=== PATIENT | female | born 1945 | race Caucasian/White ===

== ENCOUNTER 2017-02-08 11:25 | Day surgery (SDC) | payer MEDICARE, BC ==
[~2017-02-08] VITALS: Ht 167.6 cm; Wt 101.2 kg
[~2017-02-08 11:25] MED LIST: ACET-2723 PO; CYCL-375 PO; HYDR-4246 PO; LIDOCAINE 1% (10mg/ml) 2ml SDV INJ ONE; LISI1TAB11 PO; LR 1,000 ML IV SCH; OMEP20CA10 PO
[2017-02-08 11:59] VITALS: Ht 167.6 cm; Wt 101.2 kg
[2017-02-08 12:17] LABS: ANION GAP 9 MEQ/L (5-15); BUN/CREATININE RATIO 16 RATIO (6-26); CALCIUM 10.1 MG/DL (8.4-10.2); CHLORIDE 103 MEQ/L (98-107); CO2 - CARBON DIOXIDE 32 MEQ/L (22-30); CREATININE 1.1 MG/DL (0.7-1.2); GLOMERULAR FILTRATION RATE 49; GLUCOSE 104 MG/DL (65-110); POTASSIUM 4.5 MEQ/L (3.6-5); SODIUM 144 MEQ/L (134-144)
[2017-02-08 12:35] VITALS: BP 190/81; PULSE 91; RESP 14; TEMP 98; O2SAT 94
[2017-02-08] MEDS ORDERED: BUPIVACAINE 0.25% (2.5mg/ml) INJ 30ml SDV ONE (14:16)
--- NOTE | 2017-02-08 14:26 | ANESPREOP ---
Anesthesia Record Date and Time DATE: 02/08/17 TIME: 14:24 Proposed Surgical Procedure EXCISION OF SUSPICIOUSSKIN LESION, l-UPPER ARM, r-FOREARM Allergies: Coded Allergies: No Known Allergies (Unverified , 02/07/17) Ht/Wt/BMI Height: 5 ' 6.00 " Weight: 101.200 kg BMI: 36.0 kg/m2 Vital Signs Date Time Temp Pulse Resp B/P Pulse Ox O2 Delivery O2 Flow Rate FiO2 02/08/17 12:35 98.0 91 14 190/81 94 Room Air Medications Inpatient Medications Current Medications Medications (Trade) Dose Ordered Sig/Ele Start Time Stop Time Status Last Admin Dose Admin Lactated Ringer's (Lactated Ringers) 1,000 ml @ 50 mls/hr Q20H 02/08/17 07:00 02/08/17 12:54 50 MLS/HR Acetaminophen (Tylenol Extra Strength) 500 Mg Tablet, 1-2 TAB PO Q6H PRN for PAIN/FEVER, (Reported) Last Taken: on Unknown Date & Time Cyclobenzaprine HCl (Cyclobenzaprine HCl ) 10 Mg Tablet, 1 TAB PO 3XDPRN, (Reported) Last Taken: on Unknown Date & Time Hydrocodone/Acetaminophen ([place] 5-325 Tablet) 5-325 Tablet, 1 TAB PO Q6HPRN, (Reported) Last Taken: on 02/07/17 2000 Lisinopril/Hydrochlorothiazide (Lisinopril- Hctz 20-12.5 mg Tab) 1 Each Tablet, 1 TAB PO HS, (Reported) Last Taken: on 02/07/17 0600 Omeprazole (Omeprazole) 20 Mg Capsule.dr, 20 MG PO ACB, (Reported) Take 1 capsule, by mouth, one time a day (before breakfast). Last Taken: on 02/07/17 0600 Currently on Beta Blane: No Medical/Surgical History Anesthesia PMH: Reports: *Hypertension, Arthritis (OA AT HIPS), Reflux (well controlled), Denies: *Angina, *Diabetes, *Dyspnea, *NC, Anesthesia Reactions, Asthma, CHF, COPD, CVA/Stroke/TIA, Cancer, Clotting Problems, Deep Vein Thrombosis, Glaucoma, Hepatitis, Hiatal Hernia, Malignant Hyperthermia, Pneumonia, Renal Disease, Seizures, Sleep Apnea, Thyroid Disease, Tuberculosis Smoking Status: Former smoker (quit 20 yrs ago) Use Chewing Tobacco?: No Second Hand Exposure: No Substance Use Type: does not use Substance last used: prior to arrival Alcohol Intake: none Past Surgical History Orthopedic Surgeries: Yes - R TKA Abdominal Surgeries: Genitourinary Surgeries: Cardiac Surgeries: Endocrine Surgeries: Reproductive Surgeries: Yes - LAP. HYST. Neurological Surgeries: Ear Surgeries: Nose Surgeries: Throat Surgeries: Other Surgeries: Yes - COLONOSCOPY, CAT BILAT Anesthesia Adverse Reactions: FOUND none Family Hx of Anesthesia Advers: none Hx of Motion Sickness: No Pertinent Findings Laboratory Tests 02/08/17 11:59 Physical Exam Respiratory: Lungs clear Cardiovascular: FOUND Regular rate, rhythm Airway Assessment Mallampati Score: II TMD: 3 Fingerbreadths Neck Extension: Fair Teeth: Upper Dentures, Lower Dentures (dentures out preop) Overall Assessment: May Be Diff Mask Vent. ASA: 2 Plan Anesthesia Plan: TIVA Discussion Discussed risks/options/alternatives of anesthesia and questions answered. Patient consents. Nursing pain assessment noted. Attestation Statement Prior to the delivery of any anesthetic medication, I examined the patient, developed the plan, obtained the patient's consent and discussed the risk and benefits of the procedure with the patient/guardian. MARISABEL POWER CRNA Feb 08, 2017 14:26
[2017-02-08] MEDS ORDERED: KETAMINE 500mg/10ml INJECTION ONE (14:57)
[2017-02-08] MEDS ORDERED: MIDAZOLAM 2mg/2ml INJECTION ONE ×2 (14:57→15:27)
[2017-02-08] MEDS ORDERED: FENTANYL 100mcg/2ml INJECTION ONE ×5 (14:57→16:39)
[2017-02-08] MEDS ORDERED: LABETALOL 20mg/4ml INJECTION IV ONE (15:40)
[2017-02-08] MEDS ORDERED: PROPOFOL 200mg 20 ML IV ONE (16:19)
--- NOTE | 2017-02-08 16:52 | GSPOSTPROC ---
Immediate Operative Note DATE: 02/08/17 TIME: 16:49 Postop Diagnosis: Basal cell skin carcinoma of right arm and left arm. Surgical Procedure: Other (Excision of basal cell carcinoma of right arm and left arm.) Surgeon: Lucita ASA: 2 DENAE AGGARWAL MD Feb 08, 2017 16:52
[2017-02-08 16:56] VITALS: BP 143/61; PULSE 93; RESP 18; TEMP 97; O2SAT 94
[2017-02-08] MEDS ORDERED: IBUPROFEN 200 MG TABLET PO PRN (17:00)
[2017-02-08] MEDS ORDERED: OXYCODONE I.R. 5 MG TABLET PO PRN (17:00)
[2017-02-08] MEDS ORDERED: ONDANSETRON 4mg/2ml INJECTION IV PRN (17:00)
[2017-02-08] MEDS ORDERED: ACETAMINOPHEN 500 MG TABLET PO PRN (17:00)
[2017-02-08] MEDS ORDERED: PROMETHAZINE 25 MG INJECTION IV PRN (17:00)
[2017-02-08 17:11] VITALS: BP 133/58; PULSE 85; RESP 16; O2SAT 90
--- NOTE | 2017-02-08 17:15 | ANESPO ---
Post-Op Note Date 02/08/17 Time: 17:15 Status Pt Participated in Evaluation: Pt participated in person Vital Signs Date Time Temp Pulse Resp B/P Pulse Ox O2 Delivery O2 Flow Rate FiO2 02/08/17 16:56 97.0 93 18 143/61 94 Room Air Respiratory Function: Airway patent, Regular respirations Cardiovascular Function: Regular pulse Mental Status: Alert/oriented Pain Level Intensity: 0 Hydration: Taking po fluids Complications during Recovery None apparent Follow-Up Instructions Instructions Per Surgeon KERI GALINDO CRNA Feb 08, 2017 17:15
[2017-02-08 17:26] VITALS: BP 135/61; PULSE 74; RESP 16; O2SAT 90
[2017-02-08 17:41] VITALS: BP 133/60; PULSE 74; RESP 16; O2SAT 90
--- NOTE | 2017-02-09 12:18 | OPNOTEF ---
DATE OF OPERATION 02/08/2017 PREOPERATIVE DIAGNOSES 1. Suspicious skin lesion at left upper arm. 2. Suspicious skin lesion at right proximal forearm. POSTOPERATIVE DIAGNOSES 1. Basal cell skin carcinoma at left upper arm. 2. Basal cell skin carcinoma at right proximal forearm. OPERATION Excision of basal cell skin carcinoma at right proximal forearm and excision of basal cell skin carcinoma at left upper arm. SURGEON Dr. Lucita [facility] ASA Class 2 FINDINGS This patient did have a nodular, elevated 2 cm x 1.5 cm suspicious skin lesion at the left upper arm just above the level of the elbow. This was on the lateral side of the left upper arm just above the elbow. A piece of skin and subcutaneous tissue containing this skin lesion from the left upper arm was excised and submitted for frozen section examination by the pathologist. The pathologist did return a verbal frozen section examination report indicating that all resection margins on the specimen were free of tumor involvement and that this was a basal cell skin carcinoma. The patient did have a 1.4 cm x 1.1 cm ulcerated skin lesion at the ulnar side of the proximal right forearm. This was at the proximal forearm at the level of the elbow on the ulnar side of the arm. An ellipse of skin and subcutaneous tissue containing the skin lesion at the right forearm was excised and submitted as a specimen for study by the pathologist. The pathologist did return a verbal frozen section examination report on the initial specimen excised indicating that the tumor did extend close to the medial margin of the specimen. A wider margin of skin was then excised from along the medial margin of the original excision site and submitted for frozen section examination by the pathologist. The pathologist did then return a verbal frozen section examination report on this specimen indicating that all final resection margins were now free of tumor involvement. DESCRIPTION OF OPERATION The patient was placed in supine position on the operating table. The patient was premedicated with intravenous sedation medication administered by the nurse full roll inspector. The patient continued to receive intravenous sedation medication administered by the nurse full roll inspector throughout the remainder of the operation. The skin lesion site at the proximal right forearm was prepped and draped in routine sterile fashion. Bupivacaine 0.25% without epinephrine was used to infiltrate skin and subcutaneous tissue all around this skin lesion at the proximal right forearm. A longitudinally oriented elliptical incision was made around this ulcerated skin lesion at the proximal right forearm to excise the skin lesion along with a 2-mm margin of normal-appearing skin on medial and lateral sides of the suspicious-appearing skin lesion. The lateral margin of this specimen was tagged with a suture. The specimen was then submitted for frozen section examination by the pathologist. Skin margins were undermined at each side of the elliptical wound at the right forearm. Hemostasis was achieved at the wound by coagulating bleeding points with the monopolar electrosurgery device. Satisfactory hemostasis was achieved. The skin margins of the elliptical wound were able to be approximated to one another from lateral and medial sides of the wound without tension at this time. The skin margins were approximated to one another from lateral and medial sides of the wound with a series of interrupted subcuticular stitches using 3-0 Vicryl suture. The pathology report on the frozen section examination of the specimen was being awaited at this time. Attention was directed to the left arm. The left arm was prepped and draped in routine sterile fashion. The patient continued to receive intravenous sedation medication administered by the nurse full roll inspector. Skin and subcutaneous tissue at the skin lesion at the left upper arm were infiltrated with bupivacaine 0.25% without epinephrine. A longitudinally oriented elliptical incision was made around this suspicious skin lesion at the left upper arm to excise the suspicious skin lesion along with a 2-mm margin of normal-appearing skin on medial and lateral sides of the skin lesion. The ellipse of skin and subcutaneous tissue was removed. The lateral margin of the specimen was tagged with a 3-0 Vicryl suture. This specimen of skin and subcutaneous tissue excised from the left upper arm was then submitted for frozen section examination by the pathologist. Skin and subcutaneous tissue margins at lateral and medial sides of the wound were undermined. Skin margins were now able to be approximated together from medial and lateral sides of the wound without tension. A verbal frozen section examination report was returned on the ellipse of skin and subcutaneous tissue excised from the proximal right forearm. The verbal frozen section examination report indicated that there was tumor extending close to the medial margin of the ellipse of skin and subcutaneous tissue excised from the right proximal forearm. Attention was directed back to the wound at the proximal right forearm. The 3- 0 Vicryl subcuticular stitches which had been placed were divided. Skin and subcutaneous tissue margins were . Additional bupivacaine was infiltrated along the medial margin of the wound. An additional 3-mm margin of skin and subcutaneous tissue was excised from along the medial margin of the wound. This piece of skin was pinned to a cloth drape with some needles and superior, inferior, medial and lateral margins were marked on the cloth drape around the specimen to orient the specimen for the pathologist. This specimen of additional skin and subcutaneous tissue excised from the medial margin of the original excision site at the proximal right forearm was then submitted for frozen section examination by the pathologist. The medial margin of the wound at the proximal right forearm was then approximated to the lateral margin of the elliptical wound at the proximal right forearm with a series of interrupted subcuticular stitches using 3-0 Vicryl suture. Attention was directed back to the wound at the left upper arm. The medial margin of the wound was approximated to the lateral margin of the wound at the left upper arm with a series of interrupted subcuticular stitches using 3-0 Vicryl suture. A verbal frozen section examination report was returned at this time indicating that resection margins on the specimen of skin and subcutaneous tissue excised from the left upper arm were all free of tumor involvement. The verbal frozen section examination report indicated that the skin lesion at the proximal right forearm and the skin lesion at the left upper arm were both basal cell skin carcinomas. There was also a verbal frozen section examination report at this time that the final resection margins for the skin lesion at the proximal right forearm were now free of tumor involvement. Skin margins at the wound at the left upper arm were now more closely approximated to one another with a series of skin titus. Attention was directed back to the wound at the proximal right forearm. Skin margins at the wound at the proximal right forearm were now more closely approximated to one another with a series of skin titus. Sterile dressings were applied to the wound at the proximal right forearm and the wound at the left upper arm. Additional bupivacaine was infiltrated into tissue throughout the operation as needed to maintain patient comfort. The patient did continue to receive intravenous sedation medication administered by the nurse full roll inspector as necessary to maintain patient comfort. The patient did appear to tolerate the operation well. The patient was transferred from the operating room to the short-stay surgery unit in satisfactory condition. MAGALI
== END 2017-02-08 17:50 ==
LOC: SCU 11:25
PROVIDERS: ATTEND Surgery
DX: C44.619 Basal cell carcinoma of skin of left upper limb, including shoulder (principal); C44.612 Basal cell carcinoma of skin of right upper limb, including shoulder; I10 Essential (primary) hypertension; K21.9 Gastro-esophageal reflux disease without esophagitis; Z79.899 Other long term (current) drug therapy; Z90.710 Acquired absence of both cervix and uterus; Z86.010 Personal history of colon polyps; Z96.651 Presence of right artificial knee joint
CPT/HCPCS: 11603; 11606; 13121; 36415; 80048; 88305; 88331; 88332; A9270; J2250; J2704; J3010; J7120

== ENCOUNTER → 2017-02-28 | Outpatient (CLI) | payer MEDICARE, BC ==
[~2017-02-28] MED LIST changes: -LIDOCAINE 1% (10mg/ml) 2ml SDV INJ ONE; -LR 1,000 ML IV SCH
== END ==
LOC: WC.BC 10:00
DX: Z12.31 Encounter for screening mammogram for malignant neoplasm of breast (principal); N64.59 Other signs and symptoms in breast; Z80.3 Family history of malignant neoplasm of breast
CPT/HCPCS: 77063; G0202

== ENCOUNTER → 2017-03-04 | Outpatient (CLI) | payer MEDICARE, BC ==
--- NOTE | 2017-03-05 08:38 | DI ---
Indication: ITS.REASON: M25.552 LEFT HIP PAIN PROCEDURE: MRI HIP LEFT W/O CONTRAST: Encounter: Initial Comparison: None Technique: Multiplanar multisequence MR imaging of the left hip was performed without contrast. Findings: Atrophy of the gluteal and proximal quadriceps musculature. There is focal low T1 and high T2 signal intensity involving the superior aspect of the femoral head with a pattern indicative of avascular necrosis. There is a [id number] appearance with the acetabulum. There is a small hip joint effusion. No evidence of acute muscular tear or strain. The hamstring origins are intact. The visualized soft tissues of the left hemipelvis are grossly normal. No acute fracture identified. 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 .
== END ==
LOC: IMA 15:04
PROVIDERS: ATTEND Nurse Practitioner Family
DX: M16.12 Unilateral primary osteoarthritis, left hip (principal); M87.852 Other osteonecrosis, left femur; M25.552 Pain in left hip